=== PATIENT | male | born 1950 | race Caucasian/White ===

== ENCOUNTER 2022-01-06 05:34 | Day surgery (SDC) | payer BC ==
[~2022-01-06] VITALS: Ht 162.6 cm; Wt 91.7 kg
[2022-01-06 06:21] VITALS: BP 138/86; PULSE 95; TEMP 97.6
--- NOTE | 2022-01-06 06:47 | NUR ---
Dr. Alba notified that patient took Eliquis on Monday AM and PM. Will cancel surgery for now. Hold patient and keep NPO. Dr. Alba will call back with further orders.
[2022-01-06] MEDS ORDERED: ELIQUIS 5MG PO (06:50)
[2022-01-06] MEDS ORDERED: PRILOSEC 20MG20 MG PO (06:50)
[2022-01-06] MEDS ORDERED: TOPROL XL 25MG25 MG PO (06:52)
[2022-01-06] MEDS ORDERED: LIPITOR 40MG TA40 MG PO (06:52)
[2022-01-06] MEDS ORDERED: ALDACTONE 25MG25 M1 PO (06:53)
[2022-01-06] MEDS ORDERED: PRINIVIL20 MG PO (06:53)
--- NOTE | 2022-01-06 07:00 | NUR ---
Dr. Alba here and talks with the patient. All questions answered and informed the patient of need to reschedule the patient due to being on blood thinner. Patient voices understanding of this.
--- NOTE | 2022-01-06 07:07 | NUR ---
Daughter notified and voices understanding of the need to reschedule surgery. States that she will leave work now and come picking supervisor the patient. Patient dresses self.
--- NOTE | 2022-01-06 07:15 | NUR ---
Patient dismissed to home and instructed that the office will call for reschedule time and date.
== END 2022-01-06 07:15 | disposition home or self-care (01) ==
LOC: SDCO 05:34
DX: N40.1 Benign prostatic hyperplasia with lower urinary tract symptoms (principal); R33.8 Other retention of urine; Z53.9 Procedure and treatment not carried out, unspecified reason

== ENCOUNTER 2022-01-11 14:11 | Day surgery (SDC) | payer BC ==
[2022-01-11] VITALS (9 sets, daily range): BP systolic 128–178; BP diastolic 56–88; PULSE 80–111; TEMP 97.9–98.9
[~2022-01-11] VITALS: Ht 162.6 cm; Wt 91.0 kg
[~2022-01-11 14:11] MED LIST: ALDACTONE 25MG25 M1 PO; ELIQUIS 5MG PO; LIPITOR 40MG TA40 MG PO; PRILOSEC 20MG20 MG PO; PRINIVIL20 MG PO; TOPROL XL 25MG25 MG PO
--- NOTE | 2022-01-11 20:10 | NUR ---
Pt to the floor from PACU at 1920. Postop vitals initiated. Pt currently has 3 way catheter with CBI running. Urine is pale red with no signs of clots. Pt denies pain. Pt tolerating clear liquids well, call light within reach.
[2022-01-12] VITALS (8 sets, daily range): BP systolic 117–149; BP diastolic 52–70; PULSE 77–104; TEMP 97.5–98.7
--- NOTE | 2022-01-12 05:02 | NUR ---
At approximately 2345 the pt began complaining of pain at his painter site. Pts CBI was not running and there was red urine leaking from of the catheter site. Dr. Alba was called and new orders for pain medication was given. Pts catheter was also irrigated which produced clots and reestablished flow through his catheter. All other needs met, call light within reach.
--- NOTE | 2022-01-12 09:36 | NUR ---
Initial visit; Patient states he is doing well and thanked [employer] Deputy Director for the work she does and for coming in and checking on him. Patient asks that [employer] Deputy Director keep him in her prayers.
--- NOTE | 2022-01-12 12:24 | NUR ---
SW met with patient to complete intake and discuss discharge plan. Patient reports that he lives at home with his daughter Pooja ([phone]) and her family. Patient reports to being fully independent with his ADL's and does not utilize any DME to assist with mobility. Patient has no home oxygen needs. Patient see's Dr. Tobar in [place] and utilizes [facility] for medications with no cost difficulty. Patient reports that he does have a DPO[employer]-HC established and that his daughter is his agent. Patient reports that he had a total knee replacement x 1.5 months ago and has been doing outpatient therapy at [facility]. Patient is planning on returning home once medically ready. Discharge plan: Home
--- NOTE | 2022-01-12 23:27 | NUR ---
Pt resting quietly in bed. Assessment and medication administration completed without difficulty. Pt has no complaints of pain. CBI is currently running through 3 way catheter, urine is currently pink in color. Pt is A&Ox4 and pleasant. All other needs met at this time, call light within reach.
[2022-01-13 03:20] VITALS: BP 133/71; PULSE 81; TEMP 98.7
[2022-01-13 08:00] VITALS: BP 159/81; PULSE 81; PULSE 881; TEMP 98.8
--- NOTE | 2022-01-13 09:30 | NUR ---
resting in bed, is ready for catheter to be discontinued, prime with approx 200ml saline and then discontinued, instructed to call when he needs to void, verbalizes understanding
--- NOTE | 2022-01-13 09:40 | NUR ---
resting in bed with lights off, had breakfast and tolerated well, Dr Alba was in earlier and saw patient, bladder primed with approx 250ml saline and catheter discontinued, provided urinal and will try to void now, full assessment completed, see interventions for further info,
--- NOTE | 2022-01-13 11:14 | NUR ---
has voided a second time approx 125ml light pink urine
[2022-01-13 11:49] VITALS: BP 166/82; PULSE 69; TEMP 97.3
--- NOTE | 2022-01-13 13:58 | NUR ---
has voided the 6th time and it remains light pink without clots, will plan discharge
--- NOTE | 2022-01-13 14:25 | NUR ---
discharge instructions given to patient, instructed to hold eliquis for 1 week and verbalizes understanding
--- NOTE | 2022-01-13 15:10 | NUR ---
discharged per WC
== END 2022-01-13 15:10 | disposition home or self-care (01) ==
LOC: SDCO 14:11 → SURG 19:20 → SDCO 01-13 15:10
DX: N40.0 Benign prostatic hyperplasia without lower urinary tract symptoms (principal); R33.9 Retention of urine, unspecified; E66.9 Obesity, unspecified; Z68.33 Body mass index [BMI] 33.0-33.9, adult
CPT/HCPCS: OP; J0690; J1100; J2250; J2704; J7120